=== PATIENT | male | born 1985 | race Caucasian/White ===

== ENCOUNTER 2020-01-10 08:00 | Emergency (ER) | payer OTHER ==
[~2020-01-10] VITALS: Ht 182.9 cm; Wt 97.5 kg
[2020-01-10 08:09] VITALS: Ht 182.9 cm; Wt 97.5 kg
[2020-01-10 09:42] VITALS: BP 114/71
== END 2020-01-10 09:42 | disposition home or self-care (01) ==
LOC: ED 08:00
DX: M51.36 Other intervertebral disc degeneration, lumbar region (principal); M48.061 Spinal stenosis, lumbar region without neurogenic claudication
CPT/HCPCS: J1885

== ENCOUNTER → 2020-07-20 | Outpatient (CLI) | payer OTHER | END | disposition home or self-care (01) | LOC: MI 09:27 | PROC: BR39ZZZ Magnetic Resonance Imaging (MRI) of Lumbar Spine (ICD-10-PCS; principal; 2020-07-20) | DX: M54.5 Low back pain (principal) ==